=== PATIENT | male | born 1960 | race African-American/Black ===

== ENCOUNTER 2018-08-17 05:44 | Inpatient (IN) ==
[2018-04-20 11:25] LABS: Basophils % 0.7 % (0.0-0.8); Eosinophils # 0.1 10*3/uL (0.0-0.87); Eosinophils % 2.4 % (0.00-10.9); Hematocrit 45.9 VOL% (42.0-52.0); Hemoglobin 14.7 GM/DL (14.0-18.0); Immature Granulocytes % 0.5 %; Immature Granulocytes Absolute 0.02 #; Lymphocytes # 1.7 10*3/uL (1.4-4.0); Lymphocytes % 39.6 % (21.2-54.2); Mean Corpuscular Volume 99.4 FL (87-102); Mean Platelet Volume 10.4 FL (9.6-12.0); Monocytes % 9.9 % (1.7-12.7); Neutrophils % 46.9 % (38.7-73.9); Platelet Count 141 T/CUMM (130-400); Red Blood Count 4.62 MC/CUMM (3.8-5.5); Red Cell Distribution Width 11.9 % (9.3-17.3); White Blood Count 4.2 T/CUMM (4-12)
[2018-04-20 11:50] LABS: Albumin 3.5 G/DL (3.4-5.0); Bilirubin,Total 0.4 MG/DL (0.2-1.0); Calcium 8.4 MG/DL (8.5-10.1); Osmolality,Calculated 278.5 MOS/KG (273-304); Total Protein 7.3 G/DL (6.4-8.3)
[2018-08-07 13:52] LABS: Basophils % 0.7 % (0.0-0.8); Eosinophils # 0.1 10*3/uL (0.0-0.87); Eosinophils % 2.1 % (0.00-10.9); Hematocrit 47.4 VOL% (42.0-52.0); Hemoglobin 15.2 GM/DL (14.0-18.0); Immature Granulocytes % 0.2 %; Immature Granulocytes Absolute 0.01 #; Lymphocytes # 1.6 10*3/uL (1.4-4.0); Lymphocytes % 37.9 % (21.2-54.2); Mean Corpuscular HGB Conc 32.1 GM/DL (32-36); Mean Corpuscular Volume 98.1 FL (87-102); Mean Platelet Volume 10.8 FL (9.6-12.0); Monocytes % 10.5 % (1.7-12.7); Neutrophils % 48.6 % (38.7-73.9); Platelet Count 155 T/CUMM (130-400); Red Blood Count 4.83 MC/CUMM (3.8-5.5); Red Cell Distribution Width 11.7 % (9.3-17.3); White Blood Count 4.3 T/CUMM (4-12)
[2018-08-07 14:27] LABS: Albumin 4.1 G/DL (3.4-5.0); Bilirubin,Total 0.5 MG/DL (0.2-1.0); Calcium 8.5 MG/DL (8.5-10.1); Osmolality,Calculated 275.5 MOS/KG (273-304); Total Protein 7.7 G/DL (6.4-8.3)
[~2018-08-17 05:44] MED LIST: cefTRIAXone 1,000 MG in SYRINGE 1 EACH IV ONE
[2018-08-17] MEDS ORDERED: FAMOTIDINE 20 MG TABLET PO ONE (06:00)
[2018-08-17] MEDS ORDERED: FAMOTIDINE 20 MG TABLET ONE (06:15)
[2018-08-17] MEDS ORDERED: cefTRIAXone 1,000 MG VIAL ONE (06:15)
[2018-08-17] MEDS ORDERED: LACTATED RINGERS 1,000 ML IV SCH (06:30)
[2018-08-17] MEDS ORDERED: cefTRIAXone 1,000 MG in SYRINGE 1 EACH IV ONE (07:00)
[2018-08-17] MEDS ORDERED: SEVOFLURANE 1 UNIT/15 MINUTE INH ONE (09:21)
[2018-08-17] MEDS ORDERED: PROPOFOL 200 MG/20 ML VIAL IV ONE (09:21)
[2018-08-17] MEDS ORDERED: MIDAZOLAM 2 MG/2 ML VIAL ONE (09:21)
[2018-08-17] MEDS ORDERED: LACTATED RINGERS 1,000 ML IV ONE (09:22)
[2018-08-17] MEDS ORDERED: PHENYLEPHRINE 1 MG/10 ML SYRINGE IV ONE (09:22)
[2018-08-17] MEDS ORDERED: ONDANSETRON 4 MG/2 ML VIAL ONE ×2 (09:22→10:16)
[2018-08-17] MEDS ORDERED: fentaNYL 100 MCG/2 ML VIAL ONE (09:22)
[2018-08-17] MEDS ORDERED: ONDANSETRON 4 MG/2 ML VIAL IV PRN (09:27)
[2018-08-17] MEDS ORDERED: BELLADONNA/OPIUM 30 MG SUPP RECTAL PRN (09:30)
[2018-08-17] MEDS ORDERED: BACLOFEN 10 MG TABLET PO PRN (09:31)
[2018-08-17] MEDS ORDERED: HYDROmorphone 2 MG/1 ML VIAL IV PRN (09:32)
[2018-08-17 09:52] LABS: Basophils % 0.4 % (0.0-0.8); Eosinophils % 0.8 % (0.00-10.9); Hematocrit 43.7 VOL% (42.0-52.0); Hemoglobin 13.6 GM/DL (14.0-18.0); Immature Granulocytes % 0.6 %; Immature Granulocytes Absolute 0.03 #; Lymphocytes # 1.1 10*3/uL (1.4-4.0); Lymphocytes % 20.7 % (21.2-54.2); Mean Corpuscular HGB Conc 31.1 GM/DL (32-36); Mean Corpuscular Volume 101.4 FL (87-102); Mean Platelet Volume 10.8 FL (9.6-12.0); Monocytes % 2.9 % (1.7-12.7); Neutrophils % 74.6 % (38.7-73.9); Platelet Count 119 T/CUMM (130-400); Red Blood Count 4.31 MC/CUMM (3.8-5.5); Red Cell Distribution Width 11.8 % (9.3-17.3); White Blood Count 5.2 T/CUMM (4-12)
[2018-08-17 10:10] LABS: Calcium 8.2 MG/DL (8.5-10.1)
[2018-08-17] MEDS: SODIUM CHLORIDE 0.9% 1,000 ML IV SCH ×3 (11:24→17:13)
[2018-08-17] MEDS ORDERED: POTASSIUM CHLORIDE 20 MEQ TABLET PO ONE (12:19)
[2018-08-17] MEDS: ACETAMINOPHEN 325 MG TABLET PO SCH ×3 (14:48→20:29)
[2018-08-17] MEDS: oxyCODONE/ACETAMINOPHEN 5-325 MG TABLET PO PRN (14:55)
[2018-08-17] MEDS: POTASSIUM CHLORIDE 20 MEQ TABLET PO SCH (20:28)
[2018-08-18] MEDS: ACETAMINOPHEN 325 MG TABLET PO SCH ×4 (05:02→21:40)
[2018-08-18 06:50] LABS: Basophils % 0.4 % (0.0-0.8); Eosinophils # 0.2 10*3/uL (0.0-0.87); Eosinophils % 3.3 % (0.00-10.9); Hematocrit 40.6 VOL% (42.0-52.0); Hemoglobin 13.4 GM/DL (14.0-18.0); Immature Granulocytes % 0.2 %; Immature Granulocytes Absolute 0.01 #; Lymphocytes # 1.4 10*3/uL (1.4-4.0); Lymphocytes % 27.8 % (21.2-54.2); Mean Corpuscular Volume 97.6 FL (87-102); Mean Platelet Volume 11.9 FL (9.6-12.0); Monocytes % 12.6 % (1.7-12.7); Neutrophils % 55.7 % (38.7-73.9); Platelet Count 124 T/CUMM (130-400); Red Blood Count 4.16 MC/CUMM (3.8-5.5); Red Cell Distribution Width 12.1 % (9.3-17.3); White Blood Count 5.2 T/CUMM (4-12)
[2018-08-18 07:08] LABS: Calcium 8.2 MG/DL (8.5-10.1)
[2018-08-18] MEDS: hydroCHLOROthiazide 25 MG TABLET PO SCH (08:41)
[2018-08-18] MEDS: POTASSIUM CHLORIDE 20 MEQ TABLET PO SCH ×2 (08:42→21:40)
[2018-08-18] MEDS: cefTRIAXone 1,000 MG in SYRINGE 1 EACH IV SCH (08:42)
[2018-08-18] MEDS: PANTOPRAZOLE 40 MG TABLET PO SCH (08:42)
[2018-08-18] MEDS: SODIUM CHLORIDE 0.9% 1,000 ML IV SCH ×2 (08:44→09:01)
[2018-08-18] MEDS: SIMVASTATIN 10 MG TABLET PO SCH (21:40)
[2018-08-19] MEDS: ACETAMINOPHEN 325 MG TABLET PO SCH ×4 (04:31→20:41)
[2018-08-19] MEDS: cefTRIAXone 1,000 MG in SYRINGE 1 EACH IV SCH (09:23)
[2018-08-19] MEDS: hydroCHLOROthiazide 25 MG TABLET PO SCH (09:24)
[2018-08-19] MEDS: POTASSIUM CHLORIDE 20 MEQ TABLET PO SCH ×2 (09:24→20:40)
[2018-08-19] MEDS: PANTOPRAZOLE 40 MG TABLET PO SCH (09:24)
[2018-08-19] MEDS: oxyCODONE/ACETAMINOPHEN 5-325 MG TABLET PO PRN ×2 (13:30→20:41)
[2018-08-19] MEDS: SIMVASTATIN 10 MG TABLET PO SCH (20:41)
[2018-08-20] MEDS: ACETAMINOPHEN 325 MG TABLET PO SCH ×4 (04:14→20:29)
[2018-08-20] MEDS: hydroCHLOROthiazide 25 MG TABLET PO SCH (09:31)
[2018-08-20] MEDS: PANTOPRAZOLE 40 MG TABLET PO SCH (09:32)
[2018-08-20] MEDS: cefTRIAXone 1,000 MG in SYRINGE 1 EACH IV SCH (09:33)
[2018-08-20] MEDS: POTASSIUM CHLORIDE 20 MEQ TABLET PO SCH ×2 (09:33→20:29)
[2018-08-20] MEDS ORDERED: BISACODYL 10 MG SUPP RECTAL ONE (11:28)
[2018-08-20] MEDS: DOCUSATE SODIUM 100 MG CAPSULE PO SCH ×2 (13:29→22:11)
[2018-08-20] MEDS: oxyCODONE/ACETAMINOPHEN 5-325 MG TABLET PO PRN (20:29)
[2018-08-20] MEDS: SIMVASTATIN 10 MG TABLET PO SCH (20:29)
[2018-08-21] MEDS: ACETAMINOPHEN 325 MG TABLET PO SCH ×2 (04:25→09:03)
[2018-08-21 05:43] LABS: Basophils % 0.4 % (0.0-0.8); Eosinophils # 0.2 10*3/uL (0.0-0.87); Eosinophils % 4.4 % (0.00-10.9); Hematocrit 41.7 VOL% (42.0-52.0); Hemoglobin 13.6 GM/DL (14.0-18.0); Immature Granulocytes % 0.2 %; Immature Granulocytes Absolute 0.01 #; Lymphocytes # 2.2 10*3/uL (1.4-4.0); Lymphocytes % 39.4 % (21.2-54.2); Mean Corpuscular HGB Conc 32.6 GM/DL (32-36); Mean Corpuscular Volume 98.3 FL (87-102); Mean Platelet Volume 11.7 FL (9.6-12.0); Monocytes % 12.5 % (1.7-12.7); Neutrophils % 43.1 % (38.7-73.9); Platelet Count 145 T/CUMM (130-400); Red Blood Count 4.24 MC/CUMM (3.8-5.5); Red Cell Distribution Width 11.9 % (9.3-17.3); White Blood Count 5.5 T/CUMM (4-12)
[2018-08-21 06:11] LABS: Calcium 9.2 MG/DL (8.5-10.1); Osmolality,Calculated 283.3 MOS/KG (273-304)
[2018-08-21] MEDS: hydroCHLOROthiazide 25 MG TABLET PO SCH (09:03)
[2018-08-21] MEDS: POTASSIUM CHLORIDE 20 MEQ TABLET PO SCH (09:03)
[2018-08-21] MEDS: DOCUSATE SODIUM 100 MG CAPSULE PO SCH (09:04)
[2018-08-21] MEDS: PANTOPRAZOLE 40 MG TABLET PO SCH (09:05)
[2018-08-21] MEDS: cefTRIAXone 1,000 MG in SYRINGE 1 EACH IV SCH (09:05)
== END 2018-08-21 13:35 | disposition home or self-care (01) | DRG 713 ==
LOC: N.SDSINP 05:44 → N.OR 05:44 → N.5E 09:27
PROVIDERS: ADMIT Surgery; ATTEND Surgery